=== PATIENT | female | born 1985 | race Two or more races ===

== ENCOUNTER 2018-05-02 02:48 | Emergency (ER) | payer MEDICAID ==
[~2018-05-02] VITALS: Ht 149.9 cm; Wt 55.3 kg
[2018-05-02 05:49] VITALS: BP 140/69
== END 2018-05-02 05:52 | disposition home or self-care (01) ==
LOC: ER 02:48
DX: O23.41 Unspecified infection of urinary tract in pregnancy, first trimester (principal); Z3A.00 Weeks of gestation of pregnancy not specified